=== PATIENT | female | born 1965 | race Caucasian/White ===

== ENCOUNTER 2020-12-18 11:11 | Observation (INO) ==
[2020-12-18] MEDS ORDERED: NITROGLYCERIN SL 0.4 MG/TAB TAB SL STA (11:21)
[2020-12-18] MEDS ORDERED: NITROGLYCERIN 2% OINTMENT 30GM TUBE EXT STA (11:21)
--- NOTE | 2020-12-18 11:21 | Emergency Department Note ---
Impression & Plan Left-sided chest pain ED Provider Note INFORMANT: Patient ED PROVIDER(S): Tommy Medina MD CHIEF COMPLAINT: Chest pain PLAN: Disposition: Admitted Condition: Good Outpatient prescription management: none Referral: None MEDICAL DECISION MAKING: Patient presented with chest pain. Her medical history was concerning for prior NV. The patient had no acute ischemia noted on ECG. She was nitroglycerin here orally as well as transdermally. She had resolution of her chest pain and the radiating pain. Her work-up including her laboratory testing and x-ray did not reveal any acute process. I discussed further management in the hospital given the scenario and the patient was in agreement. [facility] The patient was evaluated in the ER for further management. Triage Nursing notes reviewed and agree them. Vital Signs: reviewed and remarkable for no significant abnormalities Differential diagnosis: Cardiac ischemia, aortic dissection, pulmonary embolism, pneumothorax, pneumonia, pericarditis, myocarditis, esophageal rupture, GERD, cholecystitis, pancreatitis, musculoskeletal, as well as other pathologies. Diagnostics interpreted by me: ECG:Rate:94 Rhythm:Normal sinus Cornelia:Normal QRS:Normal ST segements:No elevation or depression Other:No PACs or PVCs, LVH Cardiac Monitoring: Cardiac monitoring ordered by me: The patient was placed on continuous cardiac monitoring and observed. It revealed a normal sinus rhythm at 76 beats per minute without ectopy or evidence of dysrhythmia. Imaging studies: Chest x-ray. Findings: A chest x-ray was performed and revealed no pneumothorax, effusion, infiltrate, pulmonary edema, free air under the diaphragm, or wide mediastinum. Impression: No acute disease. HPI: The patient is a 55 year old female who presents to the Emergency Room with complaints of left chest pain. This started 30 min ago and is improved slightly. The patient also notes the following associated symptoms, back and left pain pain, left arm tingling, fatigue yesterday, nausea, . The patient has taken 1 nitro and 4 ASA for relieving factors. Current pain is rated as 3/10. Peak pain was 6. Pt denies LOC, headache, fevers, chills, diaphoresis, visual changes, neck pain, breathing difficulties, vomiting, abdominal pain, , melena, hematochezia, urinary symptoms, numbness, weakness, lymphadenopathy, rash, or other complaints. ROS: See above HPI for pertinent positives & negatives. A total of 10 systems reviewed and were otherwise negative. PAST MEDICAL HISTORY:See Below , NV, narrow coronary PAST SURGICAL HISTORY:See Below, cardiac cath without stenting FAMILY HISTORY:See Below SOCIAL HISTORY:See Below, no tobacco HOME MEDICATIONS:See Below ALLERGIES:See Below VITALS:See Below PHYSICAL EXAMINATION: GENERAL: Awake, alert, well-appearing, in no distress HENT: Normocephalic, atraumatic. Oropharynx unremarkable. EYES: Normal conjunctiva. Sclera non-icteric. NECK: Inspection normal. Non-tender. Supple. No nuchal rigidity. FROM. No masses. RESPIRATORY: Clear to auscultation. No wheezes. No rales. Normal respiratory effort. CARDIAC: Normal rate. Normal rhythm. No murmurs. No rubs. Extremities warm and well perfused. Pulses equal. No JVD. GI: Soft, non-distended. No tenderness to palpation. No rebound or guarding. No masses. RECTAL: Deferred. MUSCULOSKELETAL: Atraumatic. Chest examination reveals no tenderness. The back is symmetrical on inspection without obvious abnormality. There is no CVA tenderness to palpation. No joint edema. LOWER EXTREMITIES: Calves are equal size bilaterally and non-tender. No edema. No discoloration. NEURO: Normal sensorium. No sensory or motor deficits noted. SKIN: No rash or jaundice noted. Tommy Medina MD Past Med/Surg History Social History Smoking Status: Unknown if ever smoked Do You Dip or Chew Tobacco: No; Hx Alcohol Use: Yes Alcohol type: wine Hx Substance Use: No Preferred Language: Turkish Communication Ability: Effective Recreation Officer Required: No Beliefs That Will Affect Care: None Current Living Situation: Spouse Feels Safe at Home: Yes Assistive Devices: Glasses Allergies Allergies Allergy/AdvReac Type Severity Reaction Status Date / Time Penicillins Allergy Unknown Rash Unverified 12/18/20 13:33 Sulfa (Sulfonamide Allergy Unknown Unknown Unverified 12/18/20 13:33 Antibiotics) zolpidem [From Ambien] AdvReac Unknown "It made Unverified 12/18/20 13:33 me crazy" Home Meds Home Medications Medication Instructions Recorded Confirmed amlodipine [Norvasc] 5 mg PO QAM 12/18/20 12/18/20 aspirin 81 mg PO QAM 12/18/20 12/18/20 biotin 5,000 mcg SUBLINGUAL QAM 12/18/20 12/18/20 calcium carbonate [Calcium 600] 600 mg PO PM 12/18/20 12/18/20 coenzyme Q10 [CoQ-10] 100 mg PO QAM 12/18/20 12/18/20 cyanocobalamin (vitamin B-12) 1,000 mcg PO QAM 12/18/20 12/18/20 [Vitamin B-12] eszopiclone [Lunesta] 3 mg PO HS PRN 12/18/20 12/18/20 isosorbide mononitrate [Imdur] 30 mg PO QAM 12/18/20 12/18/20 lorazepam [Ativan] 0.5 mg PO DAILY PRN 12/18/20 12/18/20 losartan 25 mg PO QAM 12/18/20 12/18/20 magnesium 200 mg PO PM 12/18/20 12/18/20 multivitamin 1 tab PO QAM 12/18/20 12/18/20 omega-3 fatty acids [Fish Oil 1,000 mg PO QAM 12/18/20 12/18/20 Concentrate] potassium 99 mg PO QAM 12/18/20 12/18/20 vitamin D3-vitamin K2 1 tab PO QAM 12/18/20 12/18/20 zinc 50 mg PO QAM 12/18/20 12/18/20 Results & Data (ED) Vital Signs Vital Signs - 24 hr 12/18/20 11:12 12/18/20 11:18 12/18/20 12:03 Temperature 36.9 C Temperature Source Temporal Artery Scan Pulse Rate 97 H Pulse Rate [Apical] 80 Pulse Rhythm Regular Pulse Strength Normal Respiratory Rate 20 Respiratory Effort / Characteristics Non-Labored Spontaneous Respiratory Depth Normal Respiratory Pattern Regular Blood Pressure 161/98 H Blood Pressure [Left Arm] 124/83 Blood Pressure Mean 119 Blood Pressure Mean [Left Arm] 96 Blood Pressure Position Sitting Pulse Oximetry 97 97 96 Oxygen Delivery Method Room Air Room Air Room Air Sepsis Recent Fever Within 48 Hours No Sepsis New/Unexplained Change in Mental Status No Sepsis Action Taken by Nursing No Action Required 12/18/20 14:00 Temperature Temperature Source Pulse Rate Pulse Rate [Apical] 80 Pulse Rhythm Pulse Strength Respiratory Rate 18 Respiratory Effort / Characteristics Respiratory Depth Respiratory Pattern Blood Pressure Blood Pressure [Left Arm] 150/99 H Blood Pressure Mean Blood Pressure Mean [Left Arm] 116 Blood Pressure Position Pulse Oximetry 97 Oxygen Delivery Method Room Air Sepsis Recent Fever Within 48 Hours Sepsis New/Unexplained Change in Mental Status Sepsis Action Taken by Nursing Laboratory Data Result diagrams: 12/18/20 11:27 12/18/20 11:27 Lab Results 12/18/20 12/18/20 12/18/20 Range/Units 11:27 11:27 11:27 WBC 7.45 (4.8-10.8) K/uL RBC 4.63 (4.2-5.4) M/uL Hgb 14.7 (12.0-16.0) g/dL Hct 42.5 (37-47) % MCV 91.8 (80-100) fL MCH 31.7 (25-34) pg MCHC 34.6 (32-36) g/dL RDW Std Deviation 42.5 (36.4-46.3) fL RDW Coeff of Tan 12.6 (11.5-14.5) % Plt Count 254 (130-400) K/uL MPV 10.2 (7.4-10.4) fL Immature Gran % (Auto) 0.1 % Neut % (Auto) 49.5 % Lymph % (Auto) 38.0 % [facility] % (Auto) 9.3 % Eos % (Auto) 2.7 % Baso % (Auto) 0.4 % Neut # (Auto) 3.69 (1.4-6.5) K/uL Lymph # (Auto) 2.83 (1.2-3.4) K/uL [facility] # (Auto) 0.69 H (0.11-0.59) K/uL Eos # (Auto) 0.20 (0-0.5) K/uL Baso # (Auto) 0.03 (0-0.2) K/uL Immature Gran # (Auto) 0.01 (0.00-0.02) K/uL APTT 24.8 (21.0-31.0) Seconds PTT Ratio 0.9 D-Dimer 250 (0-500) ug/L FEU Sodium 136 (136-145) mmol/L Potassium 3.4 L (3.5-5.1) mmol/L Chloride 103 (98-107) mmol/L Carbon Dioxide 24 (21-32) mmol/L Anion Gap 9.0 (3-11) BUN 12 (7-18) mg/dl Creatinine 0.66 (0.6-1.2) mg/dl Est Cr Clr Drug Dosing 106.3 ml/min Est GFR ( Amer) 115.3 ml/min Est GFR (Non-Af Amer) 99.4 ml/min BUN/Creatinine Ratio 18.4 (10-20) Glucose 113 H (70-99) mg/dl Calcium 8.6 (8.5-10.1) mg/dl Total Bilirubin 0.6 (0.2-1) mg/dl AST 26 (15-37) U/L ALT 34 (12-78) U/L Alkaline Phosphatase 101 (45-117) U/L Troponin I < 0.015 (0-0.045) ng/ml Total Protein 7.7 (6.4-8.2) gm/dl Albumin 4.0 (3.4-5.0) gm/dl Globulin 3.7 (2.5-4.0) gm/dl Albumin/Globulin Ratio 1.1 (0.9-2) Lipase 191 (73-393) U/L COVID-19 Eval Order SARS-CoV-2 (PCR) (Negative) 12/18/20 12/18/20 Range/Units 11:41 11:41 WBC (4.8-10.8) K/uL RBC (4.2-5.4) M/uL Hgb (12.0-16.0) g/dL Hct (37-47) % MCV (80-100) fL MCH (25-34) pg MCHC (32-36) g/dL RDW Std Deviation (36.4-46.3) fL RDW Coeff of Tan (11.5-14.5) % Plt Count (130-400) K/uL MPV (7.4-10.4) fL Immature Gran % (Auto) % Neut % (Auto) % Lymph % (Auto) % [facility] % (Auto) % Eos % (Auto) % Baso % (Auto) % Neut # (Auto) (1.4-6.5) K/uL Lymph # (Auto) (1.2-3.4) K/uL [facility] # (Auto) (0.11-0.59) K/uL Eos # (Auto) (0-0.5) K/uL Baso # (Auto) (0-0.2) K/uL Immature Gran # (Auto) (0.00-0.02) K/uL APTT (21.0-31.0) Seconds PTT Ratio D-Dimer (0-500) ug/L FEU Sodium (136-145) mmol/L Potassium (3.5-5.1) mmol/L Chloride (98-107) mmol/L Carbon Dioxide (21-32) mmol/L Anion Gap (3-11) BUN (7-18) mg/dl Creatinine (0.6-1.2) mg/dl Est Cr Clr Drug Dosing ml/min Est GFR ( Amer) ml/min Est GFR (Non-Af Amer) ml/min BUN/Creatinine Ratio (10-20) Glucose (70-99) mg/dl Calcium (8.5-10.1) mg/dl Total Bilirubin (0.2-1) mg/dl AST (15-37) U/L ALT (12-78) U/L Alkaline Phosphatase (45-117) U/L Troponin I (0-0.045) ng/ml Total Protein (6.4-8.2) gm/dl Albumin (3.4-5.0) gm/dl Globulin (2.5-4.0) gm/dl Albumin/Globulin Ratio (0.9-2) Lipase (73-393) U/L COVID-19 Eval Order Covid19 at [facility] SARS-CoV-2 (PCR) NEGATIVE (Negative) Administered Medications Discontinued Medications Nitroglycerin (Nitroglycerin 2% Ointment 30gm Tube) 0.5 inch EXT NOW STA Stop: 12/18/20 11:22 Last Admin: 12/18/20 11:36 Dose: 0.5 inch Documented by: [id number] Nitroglycerin (Nitroglycerin Sl 0.4 Mg/Tab Tab) 0.4 mg SL NOW STA Stop: 12/18/20 11:22 Last Admin: 12/18/20 11:36 Dose: 0.4 mg Documented by: [id number] Imaging Data Radiologist's Impression: Chest X-Ray 12/18/20 11:16 SINGLE VIEW CHEST CLINICAL HISTORY: Atypical chest pain. FINDINGS: An AP, portable, upright chest radiograph is obtained. No prior studies are available for comparison at the time of dictation. The cardiomediastinal silhouette is unremarkable. The lungs and pleural spaces are clear. No pneumothorax is seen. The bony thorax is grossly intact. IMPRESSION: No active disease in the chest. ACT 112: Negative or not required by law. Electronically signed by: Bryant Quispe M.D. 12/18/2020 11:41 AM Discharge Plan Visit Data Chief Complaint: Chest Pain Stated Complaint: CHEST PAIN ED Provider: Tommy Medina Discharge Problem: Left-sided chest pain Patient Disposition: Admitted As Inpatient Discharge Instructions Interventions: ED Discharge Assessment Last Done: 12/18/20 15:27
[2020-12-18 11:37] LABS: Basophils # (auto) 0.03 K/uL (0-0.2); Basophils % (auto) 0.4 %; Eosinophils % (auto) 2.7 %; Hematocrit (blood only) 42.5 % (37-47); Hemoglobin 14.7 g/dL (12.0-16.0); Immature Granulocytes # (auto) 0.01 K/uL (0.00-0.02); Immature Granulocytes % (auto) 0.1 %; Lymphocytes # (auto) 2.83 K/uL (1.2-3.4); Mean Corpuscular Hemoglobin 31.7 pg (25-34); Mean Corpuscular Hgb Conc 34.6 g/dL (32-36); Mean Corpuscular Volume 91.8 fL (80-100); Mean Platelet Volume 10.2 fL (7.4-10.4); Monocytes # (auto) 0.69 K/uL (0.11-0.59); Monocytes % (auto) 9.3 %; Neutrophils # (auto) 3.69 K/uL (1.4-6.5); Neutrophils % (auto) 49.5 %; Platelet Count 254 K/uL (130-400); RDW Coefficient of Variation 12.6 % (11.5-14.5); RDW Standard Deviation 42.5 fL (36.4-46.3); Red Blood Count 4.63 M/uL (4.2-5.4); White Blood Count 7.45 K/uL (4.8-10.8)
--- NOTE | 2020-12-18 11:42 | XRay Report ---
SINGLE VIEW CHEST CLINICAL HISTORY: Atypical chest pain. FINDINGS: An AP, portable, upright chest radiograph is obtained. No prior studies are available for c omparison at the time of dictation. The cardiomediastinal silhouette is unremarkable. The lungs and pleural spaces are clear. No pneumothorax is seen. The bony thorax is grossly intact. IMPRESSION: No active disease in the chest. ACT 112: Negative or not required by law. Electronically signed by: Bryant Quispe M.D. 12/18/2020 11:41 AM
[2020-12-18 11:49] LABS: D Dimer 250 ug/L FEU (0-500); Partial Thromboplastin Ratio 0.9; Partial Thromboplastin Time 24.8 Seconds (21.0-31.0)
[2020-12-18 11:56] LABS: Alanine Aminotransferase 34 U/L (12-78); Aspartate Aminotransferase 26 U/L (15-37); BUN Creatinine Ratio 18.4 (10-20); Blood Urea Nitrogen 12 mg/dl (7-18); Calcium 8.6 mg/dl (8.5-10.1); Carbon Dioxide 24 mmol/L (21-32); Chloride 103 mmol/L (98-107); Creatinine Clr Calc Pharmacy 106.3 ml/min; Est GFR (African American) 115.3 ml/min; Est GFR (Non-African American) 99.4 ml/min; Glucose 113 mg/dl (70-99); Lipase 191 U/L (73-393); Potassium 3.4 mmol/L (3.5-5.1); Sodium 136 mmol/L (136-145)
[2020-12-18 12:01] LABS: Albumin Globulin Ratio 1.1 (0.9-2); Alkaline Phosphatase 101 U/L (45-117); Bilirubin,Total 0.6 mg/dl (0.2-1); Globulin 3.7 gm/dl (2.5-4.0); Total Protein 7.7 gm/dl (6.4-8.2); Troponin I < 0.015 ng/ml (0-0.045)
--- NOTE | 2020-12-18 14:42 | History & Physical Report ---
Date of Service December 18, 2020 Assessment & Plan (1) Left-sided chest pain: Will admit under observation for chest pain. Will obtain trop x3 gienv history of WI in the past and cardiac cath in the pat which showed CAD. Unsure of benefit of repeating a stress test. Patient however has stated that she likely will not want to have a cath here Will consult cardiology and help determine plan of care. obtain FLP (2) H/O gastric bypass: Complaining of fatigue, will obtain iron studies in AM History of Present Illness Primary Care Provider: Gissel Leonardo, This is a pleasant 55 yo female who came into the hospital with complaints of chest pain. PMH: below She normally follows up with [facility] however, she was visiting in [facility], she had watched her grandson play baseball. After the game, she went to the [facility], and while she was walking, she felt a burning sensation on the left side of her chest, WHICH RADIATED TO HER ARM. Patient reports her pain is similar to when she had an WI in the past. This was accompanied by fatigue. The only complaint she had prior to this chest pain, was fatigue from the day prior. She had called her PCP concern that she may be iron deficient. As patient was close to [facility], she decided to come here. Past Medical History: Myocardial Infarction in 2018 Iron deficiency Anemia Hypertension Past Surgical History Gastric Bypass Appendicitis 03/07 Allergies Allergy/AdvReac Type Severity Reaction Status Date / Time Penicillins Allergy Unknown Rash Unverified 12/18/20 13:33 Sulfa (Sulfonamide Allergy Unknown Unknown Unverified 12/18/20 13:33 Antibiotics) zolpidem [From Ambien] AdvReac Unknown "It made Unverified 12/18/20 13:33 me latisha" Home Medications Medication Instructions Recorded Confirmed Type amlodipine [Norvasc] 5 mg PO QAM 12/18/20 12/18/20 History aspirin 81 mg PO QAM 12/18/20 12/18/20 History biotin 5,000 mcg SUBLINGUAL QAM 12/18/20 12/18/20 History calcium carbonate [Calcium 600] 600 mg PO PM 12/18/20 12/18/20 History coenzyme Q10 [CoQ-10] 100 mg PO QAM 12/18/20 12/18/20 History cyanocobalamin (vitamin B-12) 1,000 mcg PO QAM 12/18/20 12/18/20 History [Vitamin B-12] eszopiclone [Lunesta] 3 mg PO HS PRN 12/18/20 12/18/20 History lorazepam [Ativan] 0.5 mg PO DAILY PRN 12/18/20 12/18/20 History losartan 25 mg PO QAM 12/18/20 12/18/20 History magnesium 200 mg PO PM 12/18/20 12/18/20 History multivitamin 1 tab PO QAM 12/18/20 12/18/20 History omega-3 fatty acids [Fish Oil 1,000 mg PO QAM 12/18/20 12/18/20 History Concentrate] potassium 99 mg PO QAM 12/18/20 12/18/20 History vitamin D3-vitamin K2 1 tab PO QAM 12/18/20 12/18/20 History zinc 50 mg PO QAM 12/18/20 12/18/20 History isosorbide mononitrate 60 mg PO DAILY #30 tab 12/19/20 Rx nitroglycerin 0.4 mg SUBLINGUAL Q5M PRN #4 tab 12/19/20 Rx Past Med/Surg History Medical History Anemia Cardiomyopathy Coronary vasospasm Hypertension Mitral regurgitation Myocardial infarct Surgical History S/P gastric bypass Family History (Updated 12/19/20 @ 09:15 by Toby Perkins) Mother Hypertension Social History Smoking Status: Unknown if ever smoked Do You Dip or Chew Tobacco: No; Hx Alcohol Use: Yes Alcohol type: wine Hx Substance Use: No Preferred Language: Burundian Communication Ability: Effective Emergency Veterinarian Required: No Beliefs That Will Affect Care: None Current Living Situation: Spouse Feels Safe at Home: Yes Assistive Devices: Glasses Review of Systems Constitutional: no fever and no sweats Eyes: no blind spots and no diplopia Ear, Nose, Mouth, Throat: no ear pain and no ear trauma Respiratory: no cough and no dyspnea Cardiovascular: + chest pain and + chest pain with activity Gastrointestinal: no abdominal pain Genitourinary: no dysuria and no urinary frequency Musculoskeletal: no back pain Integumentary: no acne and no rash Neurologic: no gait abnormality and no falls Psychiatric: no behavioral changes Hematologic / Lymphatic: no easy bleeding Allergy / Immunological: no GI upset with certain foods Physical Exam Constitutional: WD/WN, vitals as above well developed and well nourished Eyes: PERRL, conjunctivae normal, anicteric sclerae ENMT: external ear and nose normal, oropharynx normal Neck: trachea midline, no thyromegaly Respiratory: normal respiratory effort, lungs clear to auscultation Cardiovascular: RRR, no murmur, no edema Gastrointestinal (Abdomen): normal bowel sounds, soft, nontender, no hepatosplenomegaly Musculoskeletal: no cyanosis or clubbing, extremities motor strength 5/5 Skin: no rashes, warm and dry Neurologic: PERRL, EOMI, accommodation nl, no face palsy, no dysarthria Psychiatric: A+Ox3, euthymic affect Results & Data Results & Data ([facility]) Vital Signs (Past 12 Hours) Vital Signs Temp Pulse Pulse Resp BP BP Pulse Ox 12/18/20 14:00 80 18 150/99 H 97 12/18/20 12:03 80 124/83 96 12/18/20 11:18 97 12/18/20 11:12 36.9 C 97 H 20 161/98 H 97 PG Care Time/CCT Total # of Minutes Spent Total Time Spent with Patient: Total time spent is greater than 50% in coordination of care (as documented) at patient's floor/unit and/or counseling p atient: Coding Level of Care Code 40897 OBS Care - Level 3 Diagnoses Left-sided chest pain R07.9 H/O gastric bypass Z98.84
[2020-12-18] MEDS ORDERED: LORazepam 0.5 MG TAB PO PRN (15:54)
[2020-12-18] MEDS ORDERED: ESZOPICLONE 3 MG TAB PO PRN (15:54)
[2020-12-19 03:08] LABS: Basophils # (auto) 0.04 K/uL (0-0.2); Basophils % (auto) 0.7 %; Eosinophils % (auto) 3.6 %; Hemoglobin 13.9 g/dL (12.0-16.0); Lymphocytes # (auto) 2.02 K/uL (1.2-3.4); Lymphocytes % (auto) 36.2 %; Mean Corpuscular Hemoglobin 31.5 pg (25-34); Mean Corpuscular Hgb Conc 34.8 g/dL (32-36); Mean Corpuscular Volume 90.7 fL (80-100); Monocytes # (auto) 0.63 K/uL (0.11-0.59); Monocytes % (auto) 11.3 %; Neutrophils # (auto) 2.69 K/uL (1.4-6.5); Neutrophils % (auto) 48.2 %; Platelet Count 225 K/uL (130-400); RDW Coefficient of Variation 12.6 % (11.5-14.5); RDW Standard Deviation 41.7 fL (36.4-46.3); Red Blood Count 4.41 M/uL (4.2-5.4); White Blood Count 5.58 K/uL (4.8-10.8)
[2020-12-19 03:32] LABS: Alanine Aminotransferase 31 U/L (12-78); Albumin Level 3.5 gm/dl (3.4-5.0); Anion Gap 0 (3-11); Aspartate Aminotransferase 26 U/L (15-37); BUN Creatinine Ratio 21.8 (10-20); Bilirubin Direct 0.1 mg/dl (0-0.2); Blood Urea Nitrogen 12 mg/dl (7-18); Calcium 8.6 mg/dl (8.5-10.1); Carbon Dioxide 32 mmol/L (21-32); Chloride 108 mmol/L (98-107); Cholesterol 186 mg/dl (0-200); Creatinine Clr Calc Pharmacy 124.4 ml/min; Est GFR (African American) 121.7 ml/min; Glucose 90 mg/dl (70-99); Potassium 3.6 mmol/L (3.5-5.1); Sodium 140 mmol/L (136-145); Triglycerides 57 mg/dl (0-150); VLDL Cholesterol 11 mg/dl
[2020-12-19 03:36] LABS: Albumin Globulin Ratio 1.1 (0.9-2); Alkaline Phosphatase 87 U/L (45-117); Bilirubin,Total 0.4 mg/dl (0.2-1); Chol HDL Ratio 2; Globulin 3.3 gm/dl (2.5-4.0); HDL Cholesterol 97 mg/dl; Iron 50 mcg/dl (35-150); LDL Cholesterol Calculated 78 mg/dl; Total Iron Binding Capacity 249 mcg/dl (250-450); Total Protein 6.8 gm/dl (6.4-8.2); Troponin I < 0.015 ng/ml (0-0.045)
--- NOTE | 2020-12-19 06:41 | Electrocardiogram Report ---
Test Reason : Blood Pressure : / mmHG Vent. Rate : 094 BPM Atrial Rate : 094 BPM P-R Int : 154 ms QRS Dur : 080 ms QT Int : 354 ms P-R-T Axes : 041 -10 016 degrees QTc Int : 442 ms Normal sinus rhythm Voltage criteria for left ventricular hypertrophy Abnormal ECG No previous ECGs available Confirmed by Angel Mckay ([id number]) on 12/19/2020 6:41:49 AM Referred By: REFERRED SELF Confirmed By:Angel Mckay
[2020-12-19] MEDS ORDERED: amLODIPine BESYLATE 5 MG TAB PO SCH (09:00)
[2020-12-19] MEDS ORDERED: ASPIRIN 81 MG ECTAB PO SCH (09:00)
[2020-12-19] MEDS ORDERED: ISOSORBIDE MONO EXTENDED REL 30 MG TABCR PO SCH (09:00)
[2020-12-19] MEDS ORDERED: LOSARTAN POTASSIUM 25 MG TAB PO SCH (09:00)
--- NOTE | 2020-12-19 10:29 | Cardiology Consultation ---
Date of Consultation December 19, 2020 Assessment & Plan (1) Back pain: (2) Cardiomyopathy: (3) Coronary vasospasm: (4) Hypertension: (5) Mitral regurgitation: ASSESSMENT/PLAN: 1. Back pain: She denies any actual chest pain but rather only back pain on presentation which resolved quickly with nitroglycerin in the emergency department. This may are may not have represented her coronary vaso spasm. She has not had any further symptoms and her troponins have remained negative. She did not have myocardial infarction. 2. Cardiomyopathy: Previously had reduced LV systolic function per her report but most recent echo on 11/09/2020 with her primary tension worker reports normal LV systolic function with an EF of 60%. She appears euvolemic. 3. Coronary vasospasm: She reports myocardial infarction in 2018 due to vaso spasm. Because of her presentation and the fact that it may or may not have been related to coronary vasospasm (no chest pain this episode), it was recommended that she increase her isosorbide mononitrate to 60 mg which she had been on for some time until recently. She was agreeable. 4. Hypertension: Blood pressure reasonably controlled. Continue home medications with titration of nitrate therapy to her previous dose of 60 mg daily. 5. Mitral regurgitation: Reported as moderate. Asymptomatic. 6. Disposition: Chronic and stable symptoms. Follow-up with primary tension worker. She was asked to call his office tomorrow. Can be discharged from a cardiology perspective. Plan of care communicated with primary hospitalist, Dr. Perkins. Thank you for allowing me to participate in the care of your patient. Please call for any other questions or concerns. Sincerely, Jose Mckay M.D. History of Present Illness Reason for Consultation: Chest pain Requesting Physician: Toby Perkins Attending Physician: Toby Perkins History of Present Illness Ms. Haney is a very pleasant 55-year-old female with a history significant for myocardial infarction, coronary vaso spasm, hypertension, anemia, and gastric bypass. Her primary tension worker is Dr. Foster in [place]. She states that in 2018, she had a myocardial infarction. She recalls angina as a burning chest discomfort. She underwent cardiac catheterization in [place] and was told that vaso spasm was noted and the cause of her symptoms. She reports no significant CAD. She recalls having reduced LV systolic function, quoting ejection fraction of 25%, which has improved over time. Since her myocardial infarction, she has had approximately 4 episodes of chest discomfort requiring nitroglycerin. Currently, she believes that her nitroglycerin is ex pired. She was visiting the [place] area to watch a grandson play baseball and while walking at the [facility], she developed a burning in her back, without chest discomfort. Her back felt "buzzy" and numb. She denies shortness of breath or diaphoresis. Symptoms lasted less than 30 minutes. She took nitroglycerin that she had with her with no improvement. She drove herself to the emergency department and sat in her car for a few minutes before coming in. While in the emergency department, she received nitroglycerin and her symptoms resolved. She admits that she has had a stressful week at work recently. She had been on metoprolol and isosorbide mononitrate 60 mg daily. She recently discontinued metoprolol and reduce isosorbide mononitrate to 30 mg daily. She denies syncope, near-syncope, palpitations, edema, or bleeding. She has intentionally lost 19 lb over the past 6 weeks by walking 2 or 3 miles per day, 7 days per week, without exertional symptoms. Review of systems: As above. Review of systems otherwise negative/unremarkable. Family history: Father had CAD and valve replacement. Social history: Former social smoker, but not recently. Occasional alcohol. No drugs. She is and lives at home with her . She has 3 children. Grandchildren. She lives in [facility]. 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 She was unaccompanied during today's visit. Allergies Allergy/AdvReac Type Severity Reaction Status Date / Time Penicillins Allergy Unknown Rash Unverified 12/18/20 13:33 Sulfa (Sulfonamide Allergy Unknown Unknown Unverified 12/18/20 13:33 Antibiotics) zolpidem [From Ambien] AdvReac Unknown "It made Unverified 12/18/20 13:33 me crazy" Home Medications Medication Instructions Recorded Confirmed Type amlodipine [Norvasc] 5 mg PO QAM 12/18/20 12/18/20 History aspirin 81 mg PO QAM 12/18/20 12/18/20 History biotin 5,000 mcg SUBLINGUAL QAM 12/18/20 12/18/20 History calcium carbonate [Calcium 600] 600 mg PO PM 12/18/20 12/18/20 History coenzyme Q10 [CoQ-10] 100 mg PO QAM 12/18/20 12/18/20 History cyanocobalamin (vitamin B-12) 1,000 mcg PO QAM 12/18/20 12/18/20 History [Vitamin B-12] eszopiclone [Lunesta] 3 mg PO HS PRN 12/18/20 12/18/20 History lorazepam [Ativan] 0.5 mg PO DAILY PRN 12/18/20 12/18/20 History losartan 25 mg PO QAM 12/18/20 12/18/20 History magnesium 200 mg PO PM 12/18/20 12/18/20 History multivitamin 1 tab PO QAM 12/18/20 12/18/20 History omega-3 fatty acids [Fish Oil 1,000 mg PO QAM 12/18/20 12/18/20 History Concentrate] potassium 99 mg PO QAM 12/18/20 12/18/20 History vitamin D3-vitamin K2 1 tab PO QAM 12/18/20 12/18/20 History zinc 50 mg PO QAM 12/18/20 12/18/20 History isosorbide mononitrate 60 mg PO DAILY #30 tab 12/19/20 Rx nitroglycerin 0.4 mg SUBLINGUAL Q5M PRN #4 tab 12/19/20 Rx Patient History Medical History Anemia Cardiomyopathy Coronary vasospasm Hypertension Mitral regurgitation Myocardial infarct Surgical History S/P gastric bypass Family History (Updated 12/19/20 @ 09:15 by Toby Perkins) Mother Hypertension Social History Smoking Status: Unknown if ever smoked Do You Dip or Chew Tobacco: No; Hx Alcohol Use: Yes Alcohol type: wine Hx Substance Use: No Preferred Language: Moroccan Communication Ability: Effective Senior Python Developer Required: No Beliefs That Will Affect Care: None Current Living Situation: Spouse Feels Safe at Home: Yes Assistive Devices: Glasses Physical Exam Physical Exam: Gen.: No acute distress. Alert and oriented. HEENT: Anicteric sclera. Neck: No JVD. No bruits. Normal carotid upstrokes bilaterally. Cardiac: PMI was nondisplaced. No ventricular heave. Regular rate and rhythm. Normal S1-S2. No murmurs, rubs, or gallops. Pulmonary: Clear to auscultation bilaterally without wheezes, rales, or rhonchi. Abdomen: Soft, nontender, nondistended, with normoactive bowel sounds. No bruits noted. Extremities: 2+ radial pulses bilaterally. 2+ posterior tibialis pulses bilaterally. No edema or cyanosis. Psychiatric: Affect appears appropriate. Results & Data ([facility]) Vital Signs (Past 12 Hours) Vital Signs Temp Pulse Pulse Resp BP Pulse Ox 12/19/20 10:14 57 L 12/19/20 07:40 36.7 C 66 19 133/82 95 12/19/20 03:25 36.8 C 67 20 120/80 95 12/19/20 00:52 62 12/18/20 23:17 36.7 C 61 20 104/66 95 Laboratory Results Laboratory Results - last 24 hr 12/18/20 12/18/20 12/18/20 11:27 11:27 11:27 WBC 7.45 RBC 4.63 Hgb 14.7 Hct 42.5 MCV 91.8 MCH 31.7 MCHC 34.6 RDW Std Deviation 42.5 RDW Coeff of Tan 12.6 Plt Count 254 MPV 10.2 Immature Gran % (Auto) 0.1 Neut % (Auto) 49.5 Lymph % (Auto) 38.0 [place] % (Auto) 9.3 Eos % (Auto) 2.7 Baso % (Auto) 0.4 Neut # (Auto) 3.69 Lymph # (Auto) 2.83 [place] # (Auto) 0.69 H Eos # (Auto) 0.20 Baso # (Auto) 0.03 Immature Gran # (Auto) 0.01 APTT 24.8 PTT Ratio 0.9 D-Dimer 250 Sodium 136 Potassium 3.4 L Chloride 103 Carbon Dioxide 24 Anion Gap 9.0 BUN 12 Creatinine 0.66 Est Cr Clr Drug Dosing 106.3 Est GFR ( Amer) 115.3 Est GFR (Non-Af Amer) 99.4 BUN/Creatinine Ratio 18.4 Glucose 113 H Calcium 8.6 Iron TIBC Ferritin Total Bilirubin 0.6 Direct Bilirubin AST 26 ALT 34 Alkaline Phosphatase 101 Troponin I < 0.015 Total Protein 7.7 Albumin 4.0 Globulin 3.7 Albumin/Globulin Ratio 1.1 Triglycerides Cholesterol LDL Cholesterol, Calc VLDL Cholesterol, Calc HDL Cholesterol Cholesterol/HDL Ratio Lipase 191 COVID-19 Eval Order SARS-CoV-2 (PCR) Hepatitis C Ab Screen 12/18/20 12/18/20 12/18/20 11:41 11:41 16:44 WBC RBC Hgb Hct MCV MCH MCHC RDW Std Deviation RDW Coeff of Tan Plt Count MPV Immature Gran % (Auto) Neut % (Auto) Lymph % (Auto) [place] % (Auto) Eos % (Auto) Baso % (Auto) Neut # (Auto) Lymph # (Auto) [place] # (Auto) Eos # (Auto) Baso # (Auto) Immature Gran # (Auto) APTT PTT Ratio D-Dimer Sodium Potassium Chloride Carbon Dioxide Anion Gap BUN Creatinine Est Cr Clr Drug Dosing Est GFR ( Amer) Est GFR (Non-Af Amer) BUN/Creatinine Ratio Glucose Calcium Iron TIBC Ferritin Total Bilirubin Direct Bilirubin AST ALT Alkaline Phosphatase Troponin I Total Protein Albumin Globulin Albumin/Globulin Ratio Triglycerides Cholesterol LDL Cholesterol, Calc VLDL Cholesterol, Calc HDL Cholesterol Cholesterol/HDL Ratio Lipase COVID-19 Eval Order Covid19 at [facility] SARS-CoV-2 (PCR) NEGATIVE Hepatitis C Ab Screen Pending 12/18/20 12/19/20 12/19/20 20:40 02:49 02:49 WBC 5.58 RBC 4.41 Hgb 13.9 Hct 40.0 MCV 90.7 MCH 31.5 MCHC 34.8 RDW Std Deviation 41.7 RDW Coeff of Tan 12.6 Plt Count 225 MPV 10.0 Immature Gran % (Auto) 0.0 Neut % (Auto) 48.2 Lymph % (Auto) 36.2 [place] % (Auto) 11.3 Eos % (Auto) 3.6 Baso % (Auto) 0.7 Neut # (Auto) 2.69 Lymph # (Auto) 2.02 [place] # (Auto) 0.63 H Eos # (Auto) 0.20 Baso # (Auto) 0.04 Immature Gran # (Auto) 0.00 APTT PTT Ratio D-Dimer Sodium 140 Potassium 3.6 Chloride 108 H Carbon Dioxide 32 Anion Gap 0 L BUN 12 Creatinine 0.56 L Est Cr Clr Drug Dosing 124.4 Est GFR ( Amer) 121.7 Est GFR (Non-Af Amer) 105.0 BUN/Creatinine Ratio 21.8 H Glucose 90 Calcium 8.6 Iron 50 TIBC 249 L Ferritin 91.0 Total Bilirubin 0.4 Direct Bilirubin 0.1 AST 26 ALT 31 Alkaline Phosphatase 87 Troponin I < 0.015 < 0.015 Total Protein 6.8 Albumin 3.5 Globulin 3.3 Albumin/Globulin Ratio 1.1 Triglycerides 57 Cholesterol 186 LDL Cholesterol, Calc 78 VLDL Cholesterol, Calc 11 HDL Cholesterol 97 Cholesterol/HDL Ratio 2 Lipase COVID-19 Eval Order SARS-CoV-2 (PCR) Hepatitis C Ab Screen 12/19/20 08:45 WBC RBC Hgb Hct MCV MCH MCHC RDW Std Deviation RDW Coeff of Tan Plt Count MPV Immature Gran % (Auto) Neut % (Auto) Lymph % (Auto) [place] % (Auto) Eos % (Auto) Baso % (Auto) Neut # (Auto) Lymph # (Auto) [place] # (Auto) Eos # (Auto) Baso # (Auto) Immature Gran # (Auto) APTT PTT Ratio D-Dimer Sodium Potassium Chloride Carbon Dioxide Anion Gap BUN Creatinine Est Cr Clr Drug Dosing Est GFR ( Amer) Est GFR (Non-Af Amer) BUN/Creatinine Ratio Glucose Calcium Iron TIBC Ferritin Total Bilirubin Direct Bilirubin AST ALT Alkaline Phosphatase Troponin I < 0.015 Total Protein Albumin Globulin Albumin/Globulin Ratio Triglycerides Cholesterol LDL Cholesterol, Calc VLDL Cholesterol, Calc HDL Cholesterol Cholesterol/HDL Ratio Lipase COVID-19 Eval Order SARS-CoV-2 (PCR) Hepatitis C Ab Screen Diagnostic Findings Telemetry personally reviewed: Sinus rhythm. No arrhythmia. Echo done with her primary tension worker 11/09/2020: Normal LV systolic function. EF 60%. Normal wall motion. Sclerotic aortic valve. Moderate MR. Normal RVSP. (she had a copy of her report). ECGs personally reviewed: ECG 12/18/2020 at 11:18 a.m.: Sinus rhythm 94 beats per minute. LVH. ECG 12/19/2020 at 6:31 a.m.: Sinus rhythm 70 beats per minute. LVH. Chest x-ray 12/18/2020: No active disease per Radiology. Medications Administered Current Inpatient Medications Amlodipine Besylate (Amlodipine Besylate 5 Mg Tab) 5 mg PO [facility] Stop: 01/18/21 08:59 Last Admin: 12/19/20 08:19 Dose: 5 mg Documented by: Aspirin (Aspirin 81 Mg Ectab) [facility] Stop: 01/18/21 08:59 Last Admin: 12/19/20 08:19 Dose: 81 mg Documented by: Eszopiclone (Eszopiclone 3 Mg Tab) 3 mg PO HS PRN PRN Reason: Sleep Stop: 01/17/21 15:53 Last Admin: 12/18/20 22:44 Dose: 3 mg Documented by: Isosorbide Mononitrate (Isosorbide [place] Extended Rel 30 Mg Tabcr) 30 mg PO [facility] Stop: 01/18/21 08:59 Last Admin: 12/19/20 08:20 Dose: 30 mg Documented by: Lorazepam (Lorazepam 0.5 Mg Tab) 0.5 mg PO DAILY PRN PRN Reason: Anxiety Stop: 01/17/21 15:53 Last Admin: 12/18/20 20:50 Dose: 0.5 mg Documented by: Losartan Potassium (Losartan Potassium 25 Mg Tab) 25 mg PO [facility] Stop: 01/18/21 08:59 Last Admin: 12/19/20 08:20 Dose: 25 mg Documented by: PG Care Time/CCT Total # of Minutes Spent Total Time Spent with Patient: Total time spent is greater than 50% in coordination of care (as documented) at patient's floor/unit and/or counseling patient: Coding Level of Care Code 34902 Office/OBS Consult Lvl 4 Diagnoses Back pain M54.9 Cardiomyopathy I42.9 Coronary vasospasm I20.1 Hypertension I10 Mitral regurgitation I34.0
[2020-12-19] MEDS ORDERED: ISOSORBIDE MONO EXTENDED REL 30 MG TABCR PO ONE (11:15)
--- NOTE | 2020-12-19 19:13 | Discharge Summary ---
Date of Service December 19, 2020 Principal Diagnosis left sided chest pain Discharge Exam Constitutional WD/WN, vitals as above well developed and well nourished Eyes PERRL, conjunctivae normal, anicteric sclerae ENMT external ear and nose normal, oropharynx normal Neck trachea midline, no thyromegaly Respiratory normal respiratory effort, lungs clear to auscultation Cardiovascular RRR, no murmur, no edema Gastrointestinal (Abdomen) normal bowel sounds, soft, nontender, no hepatosplenomegaly Musculoskeletal no cyanosis or clubbing, extremities motor strength 5/5 Skin no rashes, warm and dry Neurologic PERRL, EOMI, accommodation nl, no face palsy, no dysarthria Psychiatric A+Ox3, euthymic affect Discharge Data Allergies Allergy/AdvReac Type Severity Reaction Status Date / Time Penicillins Allergy Unknown Rash Unverified 12/18/20 13:33 Sulfa (Sulfonamide Allergy Unknown Unknown Unverified 12/18/20 13:33 Antibiotics) zolpidem [From Ambien] AdvReac Unknown "It made Unverified 12/18/20 13:33 me dorazy" Consultations 12/18/20 13:22 ED Decision to Admit Stat 12/18/20 14:47 Consult Cardiology Routine Hospital Course (1) Left-sided chest pain: Will admit under observation for chest pain. Will obtain trop x3 gienv history of TX in the past and cardiac cath in the pat which showed CAD. Unsure of benefit of repeating a stress test. Patient however has stated that she likely will not want to have a cath here Will consult cardiology and help determine plan of care. Appreciate input from cardiology: (Bold) ASSESSMENT/PLAN: 1. Back pain: She denies any actual chest pain but rather only back pain on presentation which resolved quickly with nitroglycerin in the emergency department. This may are may not have represented her coronary vaso spasm. She has not had any further symptoms and her troponins have remained negative. She did not have myocardial infarction. 2. Cardiomyopathy: Previously had reduced LV systolic function per her report but most recent echo on 11/09/2020 with her primary grain manager reports normal LV systolic function with an EF of 60%. She appears euvolemic. 3. Coronary vasospasm: She reports myocardial infarction in 2018 due to vaso spasm. Because of her presentation and the fact that it may or may not have been related to coronary vasospasm (no chest pain this episode), it was recommended that she increase her isosorbide mononitrate to 60 mg which she had been on for some time until recently. She was agreeable. 4. Hypertension: Blood pressure reasonably controlled. Continue home medications with titration of nitrate therapy to her previous dose of 60 mg daily. 5. Mitral regurgitation: Reported as moderate. Asymptomatic. 6. Disposition: Chronic and stable symptoms. Follow-up with primary grain manager. She was asked to call his office tomorrow. Can be discharged from a cardiology perspective. Plan of care communicated with primary hospitalist, Dr. Perkins. Thank you for allowing me to participate in the care of your patient. Please call for any other questions or concerns. (2) H/O gastric bypass: Complaining of fatigue, iron studies did not show evidence of iron deficiency. Total Time Total Time Spent Total Time Spent (In Minutes): 32 Total Time Includes: Examination of the Patient, Discharge Planning and Medication Reconciliation Discharge Plan Discharge Items Patient Disposition: Home - Self-Care Reason For Visit: CHEST PAIN Discharge Diagnosis: CHEST PAIN Activity: Resume your previous activity Non-emergency contact: Primary Care Provider Call non-emergency contact if: you have any medication questions Follow-up/Referrals: Gissel Leonardo DO [Primary Care Provider] - Diet: Regular Addtl Attending Provider Instructions: You were seen for chest pain. You had 3 negative cardiac enzyme tests. You were seen by cardiology who recommended to increase your Imdur to 60 mg. I sent a script to your pharmacy. You may finish your 30 mg Imdur at home and just take twice a day, or just picking machine operator helper your 60 mg Imdur and take one of those daily. Pending Studies at Discharge: No Stand-Alone Forms: My [facility] [employer] Smoking Cessation Medications and DC Order Prescriptions: New isosorbide mononitrate 60 mg tablet extended release 24 hr 60 mg PO DAILY Qty: 30 RF: 0 nitroglycerin 0.4 mg tablet, sublingual 0.4 mg sublingual Q5M PRN (Reason: chest pain) Qty: 4 RF: 2 Continued multivitamin Tablet 1 tab PO QAM RF: 0 omega-3 fatty acids [Fish Oil Concentrate] 1,000 mg Capsule 1,000 mg PO QAM RF: 0 cyanocobalamin (vitamin B-12) [Vitamin B-12] 1,000 mcg Tablet 1,000 mcg PO QAM RF: 0 amlodipine [Norvasc] 5 mg Tablet 5 mg PO QAM RF: 0 aspirin 81 mg Tablet,Delayed Release (Dr/Ec) 81 mg PO QAM RF: 0 calcium carbonate [Calcium 600] 600 mg calcium (1,500 mg) Tablet 600 mg PO PM RF: 0 potassium 99 mg Tablet 99 mg PO QAM RF: 0 lorazepam [Ativan] 0.5 mg Tablet 0.5 mg PO DAILY PRN (Reason: Anxiety) RF: 0 losartan 25 mg Tablet 25 mg PO QAM RF: 0 zinc 50 mg Tablet 50 mg PO QAM RF: 0 magnesium 200 mg Tablet 200 mg PO PM RF: 0 coenzyme Q10 [CoQ-10] 100 mg Capsule 100 mg PO QAM RF: 0 eszopiclone [Lunesta] 3 mg Tablet 3 mg PO HS PRN (Reason: Sleep) RF: 0 biotin 5,000 mcg Tablet, Sublingual 5,000 mcg SUBLINGUAL QAM RF: 0 vitamin D3-vitamin K2 5,500-200 unit-mcg Tablet 1 tab PO QAM RF: 0 Discontinued isosorbide mononitrate [Imdur] 30 mg Tablet Extended Release 24 Hr 30 mg PO QAM RF: 0 Discharge Orders: Discharge Order (Routine); Ordered 12/19/20 Ordered By: Toby Perkins Admission Data Admit Date/Time: 12/18/20 14:44 Attending Provider: Toby Perkins Admit Provider: Toby Perkins Primary Care Provider: Gissel Leonardo Other Providers: Meño Ortiz ; Anupam Vivas ; Gianfranco Willett ; Petar Oakley ; Tony Bansal ; Brian Loyd ; Jakob Stearns Jr ; Angel Mckay ; Harriet Andrade ; Maria C Collins ; Augustine Harrison ; Augustine Gannon ; Valentino Perez ; Moshe Allen ; Lupis Snow ; Tutu Schneider ; Kevin Brown Other Interventions: Discharge Summary Assessment (RN) Last Done: 12/19/20 11:23 Coding Level of Care Code D/C Day Management >30 mins Diagnoses Left-sided chest pain R07.9 H/O gastric bypass Z98.84 Time Spent (min) 32
--- NOTE | 2020-12-20 06:26 | Electrocardiogram Report ---
Test Reason : Blood Pressure : / mmHG Vent. Rate : 070 BPM Atrial Rate : 070 BPM P-R Int : 142 ms QRS Dur : 082 ms QT Int : 424 ms P-R-T Axes : 035 -09 007 degrees QTc Int : 457 ms Normal sinus rhythm Moderate voltage criteria for LVH, may be normal variant Borderline ECG When compared with ECG of 18-DEC-2020 11:18, No significant change was found Confirmed by Angel Mckay ([id number]) on 12/20/2020 6:25:35 AM Referred By: REFERRED SELF Confirmed By:Angel Mckay
== END 2020-12-19 11:59 | disposition home or self-care (01) ==
LOC: ED 11:11 → 2S 11:11